=== PATIENT | male | born 1960 | race Caucasian/White ===

== ENCOUNTER → 2023-10-09 07:11 | Outpatient (REF) | payer OTHER, SELFPAY | LOC: HWRCS 07:11 | PROVIDERS: ATTENDING PHYSICIAN Internal Medicine; FAMILY PHYSICIAN Internal Medicine | DX: I25.10 Atherosclerotic heart disease of native coronary artery without angina pectoris (principal); I77.810 Thoracic aortic ectasia | CPT/HCPCS: 93306 ==

== ENCOUNTER → 2024-01-15 06:15 | Day surgery (SDC) | payer OTHER, SELFPAY | LOC: GI 06:15 | PROVIDERS: ATTENDING PHYSICIAN Internal Medicine Gastroenterology; FAMILY PHYSICIAN Internal Medicine | DX: Z12.11 Encounter for screening for malignant neoplasm of colon (principal); Z86.010 Personal history of colon polyps; K64.8 Other hemorrhoids; K57.30 Diverticulosis of large intestine without perforation or abscess without bleeding; K51.40 Inflammatory polyps of colon without complications; D12.2 Benign neoplasm of ascending colon | CPT/HCPCS: 45385; 45380; 88305 ==

== ENCOUNTER → 2025-01-25 13:45 | Outpatient (REF) | payer OTHER, SELFPAY | LOC: PAVMRI 13:45 | PROVIDERS: ATTENDING PHYSICIAN Otolaryngology; FAMILY PHYSICIAN Internal Medicine | DX: R42 Dizziness and giddiness (principal) | CPT/HCPCS: 70553; A9575 ==

== ENCOUNTER → 2025-04-03 13:40 | Outpatient (REF) | payer OTHER, SELFPAY | LOC: DHSLP 13:40 | PROVIDERS: ATTENDING PHYSICIAN Internal Medicine; FAMILY PHYSICIAN Internal Medicine | DX: G47.33 Obstructive sleep apnea (adult) (pediatric) (principal) | CPT/HCPCS: 95800 ==